=== PATIENT | male | born 1980 | race Caucasian/White ===

== ENCOUNTER 2019-01-29 21:02 | Emergency (ER) | payer MEDICAID ==
[~2019-01-29] VITALS: Ht 175.3 cm; Wt 79.5 kg
[2019-01-29 21:23] VITALS: BP 134/95
== END 2019-01-29 23:30 | disposition home or self-care (01) ==
LOC: ER 21:03
DX: Z48.01 Encounter for change or removal of surgical wound dressing (principal); Z90.49 Acquired absence of other specified parts of digestive tract
CPT/HCPCS: 99284

== ENCOUNTER 2023-04-21 03:16 | Emergency (ER) | payer MEDICARE, MEDICAID ==
[~2023-04-21] VITALS: Ht 175.3 cm; Wt 84.1 kg
[2023-04-21 03:29] VITALS: BP 136/107; PULSE 115; RESP 18; TEMP 99.5; O2SAT 99
== END 2023-04-21 05:35 | disposition left against medical advice (07) ==
LOC: ER 03:16
DX: Z02.89 Encounter for other administrative examinations (principal); Z53.21 Procedure and treatment not carried out due to patient leaving prior to being seen by health care provider
CPT/HCPCS: 99281